=== PATIENT | female | born 1965 | race Caucasian/White ===

== ENCOUNTER → 2016-12-18 | Outpatient (CLI) | payer OTHER ==
[~2016-12-18] MED LIST: AMLODIPINE; FEMARA2.5 MG PO; FLEXERIL PO; FLONASE16 GM; NEURONTIN800 MG PO; NORCO 5-325 TA1 EACH PO; ZOLODEX; ZOLOFT
== END ==
LOC: CAT 09:08
DX: Z13.6 Encounter for screening for cardiovascular disorders (principal)